=== PATIENT | female | born 1980 | race Caucasian/White ===

== ENCOUNTER 2016-07-20 | Inpatient (IN) ==
[2016-07-20] MEDS ORDERED: Ondansetron 4 MG/2 ML VIAL IVP PRN (00:26)
[2016-07-20] MEDS ORDERED: Famotidine 20 MG/2 ML VIAL IVP PRN (00:26)
[2016-07-20] MEDS ORDERED: Naloxone 0.4 MG/ML INJ IVP PRN (00:26)
--- NOTE | 2016-07-20 00:37 | OB/GYN History & Physical ---
Date of Encounter: 07/20/16 Time of Encounter: 00:32 Assessment and Plan (1) 38 weeks gestation of Current visit: Yes Status: Acute admit to labor and delivery (2) Spontaneous rupture of amniotic membranes Current visit: Yes Status: Acute Speculum + pooling and fern test Large amount of clear fluid noted. (3) Hepatitis C virus Current visit: Yes Status: Acute Qualifiers: Viral hepatitis chronicity: chronic Hepatic coma status: without hepatic coma Qualified Code(s): B18.2 - Chronic viral hepatitis C History of Present Illness Chief complaint: SROM HPI: Ms. Whalen is a 35 year old female at 38w2d presents to labor and delivery with complaints of spontaneous rupture of membranes. Patient reports her water broke at 2300 on 07/19/16. Patient denies any bleeding or color to amniotic fluid. Patient reports + FM and irregular contractions. Patient desires permanent sterilization after delivery. Consent is singed and on the chart. Patient's blood type is O+, Rubella: Immune, Hep B: nonreactive, Hep C: Positive GBS: Negative. Patient has late but adequate care. Past Med Surg Social Fam HX - Past Medical History Source: patient Medical history: hepatitis (Hep C +) Psychiatric history: no psych history - Past Surgical History Surgical History: other (D+C) - Social History Smoking Status: Current every day smoker Smokeless Tobacco Status: No Alcohol use: none Drug use: none Current living situation: Home - Independent Activity Level: Independent ambulation Recent Out of Country Travel Within the Last 8 Weeks: No Exposure or Possible Exposure to Illness During Travel: No Obstetrical History - Pregnancies : 8 Para: 3 Term: 3 : 0 Ab's: 4 Livin Medications and Allergies Ferrous Sulfate 325 mg PO BIDWM 03/03/15 [History] Penicillin VK 500 mg PO QID #40 tablet 03/03/15 [Rx] TraMADol [Ultram] 50 mg PO Q6HR PRN #12 tablet 03/03/15 [Rx] Allergies No Known Allergies Allergy (Verified 03/03/15 17:42) Review of System OB - Constitutional Constitutional ROS IM: no chills, no fever(s), no headache(s) - Cardiovascular Cardiovascular: no chest pain, no edema, no palpitations, no syncope - Respiratory Respiratory: no cough - Gastrointestinal Gastrointestinal: no abdominal pain, no constipation, no diarrhea, no heartburn , no nausea, no vomiting - Genitourinary Genitourinary: vaginal discharge, no abnormal vaginal bleeding, no dysuria, no flank pain, no genital lesions, no urinary frequency, no urinary hesitancy, no urinary urgency, no vaginal odor, no vaginal pruritis Exam - Constitutional Constitutional: well developed, well nourished, no acute distress, average body habitus - HEENT HEENT: Normocephaly, Mucus Membranes Moist - Neck Neck exam: full ROM, supple - Lungs Respiratory exam: CTAB - Cardiovascular Cardiovascular exam: RRR, +S1, +S2 - Abdomen Abdomen: Present: bowel sounds normal, gravid, non tender - Extremities Extremities exam: full ROM, normal capillary refill, normal inspection Deep Tendon Reflex Grade: 2+ Normal - Cervix Dilation: 4 Effacement: 90 Station: -1 - Uterus Uterus exam: Present: normal size, normal contour - Anus/Rectum Anus/Rectum: Present: normal perianal skin - Comments Comments: Speculum exam: +[place], + Pooling. FHR 135 bpm moderate variability +15x15 accels no decels noted CAt 1 tracing. Results All other labs normal. - VTE Reasons for not Prescribing Prophylaxis: Treatment not Indicated - Low risk for VTE
[2016-07-20] MEDS ORDERED: miSOPROStol 100 MCG TABLET PO STA (01:33)
[2016-07-20 01:57] LABS: Basophils # 0.1 K/mcL (0.0-0.2); Basophils % 0.3 %; Eosinophils # 0.3 K/mcL (0.0-0.6); Eosinophils % 1.5 %; Hematocrit 39.5 % (35.3-44.9); Hemoglobin 13.3 g/dL (11.5-15.4); Immature Granulocytes % 1.5 % (0-4); Lymphocytes # 3.5 K/mcL (0.6-4.6); Lymphocytes % 20.5 %; Mean Corpuscular HGB Conc 33.7 g/dL (31.6-35.5); Mean Corpuscular Hemoglobin 32.4 pg (28.0-33.3); Mean Corpuscular Volume 96.1 fL (83.0-100.0); Mean Platelet Volume 9.4 fL (9.4-12.4); Monocytes # 1.5 K/mcL (0.0-1.3); Monocytes % 8.9 %; Neutrophils # 11.6 K/mcL (1.6-8.9); Platelet Count 401 K/mcL (140-400); Red Blood Count 4.11 M/mcL (3.82-4.97); Red Cell Distribution Width 13.7 % (11.5-14.5); Segmented Neutrophils % 67.3 %
[2016-07-20] MEDS ORDERED: Mag Hydrox/Al Hydrox/Simeth 30 ML UDC PO PRN (04:16)
--- NOTE | 2016-07-20 06:12 | OB Labor Progress Note ---
Date of Encounter: 07/20/16 Time of Encounter: 06:10 Labor Progress Note - Subjective Subjective: Patient resting in bed on left side. Patient reports contractions are stronger and pain is worse. Discussed POC with patient. Patient denies any questions or concerns. - Cervix Cervix: 5/90/-1 - Heart Tones Heart Tones: 135 bpm moderate variability +15x15 accels no decels noted. - [place]: 1-4 min apart - Interventions Interventions: SVE, IUPC placed without difficulty. Patient tolerated well. - Plan Plan: Continue labor management. If contractions are not adequate for labor will start Pitocin if needed.
[2016-07-20] MEDS ORDERED: Oxytocin 20 units/ LR 1000 mL 20 UNIT/1,000 ML BAG IVC SCH (06:15)
[2016-07-20] MEDS: *HR* Nalbuphine 20 MG/ML AMPUL IVP PRN ×2 (06:23→09:56)
[2016-07-20] MEDS: Ringers Solution, Lactated 1,000 ML IVC SCH ×2 (06:24→11:17)
[2016-07-20] MEDS ORDERED: Nicotine 21 MG PATCH.TD24 TD SCH (09:00)
--- NOTE | 2016-07-20 11:03 | Anesthesia Evaluation PreOp ---
Date of Encounter: 07/20/16 Time of Encounter: 07:24 - Past History Planned Operation: vaginal del, Induction Cardiac History: Denies any Significant Hx Pulmonary History: Denies Any Significant HX PLANT MAINTENANCE TECHNICIAN History: Denies Any Significant HX Other Medical History: Hepatic (Hep C, previous drug abuse/Methadone use) Anesthesia History: No Prior Anesthetic Complications (no Family Hx of problems) , Past Anesthesia : Yes (term) Alcohol Use: none Drug use: none Medications and Allergies Ranitidine HCl [Zantac] 150 mg PO HS 07/20/16 [History] Allergies No Known Allergies Allergy (Verified 07/20/16 02:32) Anesthesia Results - Labs 07/20/16 01:25 Anesthesia Exam - HEENT Pupil (Motor): Pupils equal Mallampati: II Teeth: Normal Oral Opening: Greater than 3 - PLANT MAINTENANCE TECHNICIAN LOC: Oriented PLANT MAINTENANCE TECHNICIAN Motor: Normal RUE, Normal LUE, Normal RLE, Normal LLE, Normal Face PLANT MAINTENANCE TECHNICIAN Sensory: Normal: RUE, LUE, RLE, LLE, Face - Cardiac Rhythm: Regular Murmur: None - Pulmonary Breath Sounds: bilateral Clear Respiratory Effort: Symmetrical Anesthesia Assess/Plan ASA Score: 2 Modified Michael Scale for Level of Consciousness: Cooperative, oriented, and tranquil Anesthetic Plan: General, Regional Monitoring Plan: Standard Monitors
[2016-07-20] MEDS ORDERED: Epidural Premix (fent/bupiv) 110 ML EP ONE (11:13)
[2016-07-20] MEDS ORDERED: EPHEDrine 50 MG/ML VIAL ONE (12:04)
--- NOTE | 2016-07-20 12:16 | Anesthesia Procedures ---
Date of Encounter: 07/20/16 Time of Encounter: 11:38 Procedures: Anesthesia - Epidural/Spinal Patient ID/Chart reviewed: Yes Patient examined: Yes OB Eval: Gestational age: term OB Eval: : 3 OB Eval: Hx Para: 2 OB Eval: Contractions: Non-stressed pattern Consent Obtained: Yes Site Prep: Aseptic Technique, Sterile prep and drape, 0.5% Chlorhexidine/Alcohol Patient position: upright Local Anesthetic: Lidocaine 1% Amount of Local Anesthetic used: 2 Touhy Needle Gauge: 18 Touhy Needle Depth (cm): 7 Catheter Depth at Skin (cm): 11 Test Dose Result: Negative Loading Dose: Other: 12ml from solution Loading Dose Administered: Thru Catheter Infusion Med: 0.125% Bupivacaine w/ 2 mcg/ml Fentanyl Infusion Rate (mls/hr): [address]: Tegaderm, Tape Interspace Used: L3-L4 Loss of Resistance (MARIA DOLORES): Yes (saline) Blood: No CSF: No Paresthesia: No Vitals + FHT's: vss though out, FHR stable per rn's
--- NOTE | 2016-07-20 14:29 | OB/GYN Procedure Note ---
Delivery - Delivery Date: 07/20/16 Provider: Gisselle Wetzel Intrapartum events: none Delivery induction: none Delivery augmentation: pitocin Delivery monitor: external FHT, external uterine, internal uterine Anesthesia: epidural Estimated Blood Loss: 100 - (s) Infant A Delivery Date: 07/20/16 Infant Delivery Time: 13:58 Presentation: vertex Position: POLA Route of delivery: Gender: Female Viability: Viable Pounds: 7 Ounces: 9 Weight Gram: 3.435 kg at 1 minute: 7 at 5 mins: 9 Shoulder Dystocia: not encountered Specimens collected: cord blood Placenta: spontaneous Cord: nuchal cord (x1), 3 umbilical vessels, other (True Knot) - Repair Episiotomy: none Laceration Description: None - Complications Delivery complications: none Delivery comments: Called to patient's room. Patient reports pressure and she needs to push. Patient was complete. Placed in stirrups and prepped for delivery. Patient began to push with contractions. Spontaneous delivery of female infant POLA. Nuchal cord x1 reduced. Infant was placed on maternal abdomen. Cord was clamped and cut after pulsation ceased. Cord blood was collected. A true knot was noted in umbilical cord. Perineum intact. placed skin to skin. Pericare provided. Both mother and baby are stable in LDR. - Disposition Mom disposition: stable in LDR [place] disposition: stable in LDR
[2016-07-20] MEDS ORDERED: Lanolin 7 G OINT...G. TP PRN (17:01)
[2016-07-20] MEDS ORDERED: Oxytocin 20 units/ LR 1000 mL 20 UNIT/1,000 ML BAG IV SCH (17:01)
[2016-07-20] MEDS ORDERED: Acetaminophen 325 MG TABLET PO PRN (17:01)
[2016-07-20] MEDS ORDERED: Oxytocin 20 units/ LR 1000 mL 20 UNIT/1,000 ML BAG IVC ONE (17:01)
[2016-07-20] MEDS: Ibuprofen 600 MG TABLET PO PRN ×2 (17:17→23:23)
[2016-07-21] MEDS ORDERED: Ringers Solution, Lactated 1,000 ML ONE ×2 (05:22→10:09)
[2016-07-21] MEDS: Ibuprofen 600 MG TABLET PO PRN ×3 (05:31→20:57)
[2016-07-21] MEDS: Ringers Solution, Lactated 1,000 ML IVC SCH (05:33)
--- NOTE | 2016-07-21 07:25 | Anesthesia Evaluation PreOp ---
Date of Encounter: 07/21/16 Time of Encounter: 07:22 - Past History Planned Operation: BTL Cardiac History: Denies any Significant Hx Pulmonary History: Denies Any Significant HX STUDENT SERVICES COORDINATOR History: Denies Any Significant HX Other Medical History: Hepatic (HEP C, previous drug abuse/methadone use) Anesthesia History: No Prior Anesthetic Complications, Past Anesthesia Alcohol Use: none Drug use: none Medications and Allergies Ranitidine HCl [Zantac] 150 mg PO HS 07/20/16 [History] Allergies No Known Allergies Allergy (Verified 07/20/16 02:32) Anesthesia Results - Labs 07/20/16 01:25 Anesthesia Exam - HEENT Pupil (Motor): Pupils equal Mallampati: II Teeth: Normal Oral Opening: Greater than 3 - STUDENT SERVICES COORDINATOR LOC: Oriented STUDENT SERVICES COORDINATOR Motor: Normal RUE, Normal LUE, Normal RLE, Normal LLE, Normal Face STUDENT SERVICES COORDINATOR Sensory: Normal: RUE, LUE, RLE, LLE, Face - Cardiac Rhythm: Regular Murmur: None - Pulmonary Breath Sounds: bilateral Clear Respiratory Effort: Symmetrical Anesthesia Assess/Plan ASA Score: 2 Modified Michael Scale for Level of Consciousness: Cooperative, oriented, and tranquil Anesthetic Plan: General (patient request GA,) Monitoring Plan: Standard Monitors
[2016-07-21] MEDS ORDERED: *HR* Promethazine 25 MG/ML VIAL IVP PRN (07:26)
[2016-07-21] MEDS ORDERED: *HR* FentaNYL (PF) 250 MCG/5 ML VIAL ONE (07:33)
[2016-07-21] MEDS ORDERED: Lidocaine -MPF 2% 5 ML VIAL INFILT ONE (07:33)
[2016-07-21] MEDS ORDERED: *HR* Propofol 200 MG/20 ML VIAL IVP ONE (07:34)
[2016-07-21] MEDS ORDERED: *HR* Midazolam HCl 2 MG/2 ML VIAL ONE (07:36)
[2016-07-21] MEDS ORDERED: Lidocaine 1% 20 ML MDV ONE (08:31)
[2016-07-21] MEDS ORDERED: Dexamethasone 4 MG/ML VIAL ONE (09:11)
[2016-07-21] MEDS ORDERED: Ondansetron 4 MG/2 ML VIAL ONE (09:11)
[2016-07-21] MEDS ORDERED: *HR* HYDROcodone/Acet 5/325 mg TABLET PO ONE (09:37)
[2016-07-21] MEDS ORDERED: *HR* OxyCODONE/APAP 5/325 TABLET PO ONE ×2 (09:37→23:58)
--- NOTE | 2016-07-21 09:41 | OB/GYN Procedure Note ---
OB-MANAGER HOSPICE: Procedure - Diagnosis Date of procedure: 07/21/16 Pre-op diagnosis: Desires sterilization Post-op diagnosis: same - Procedure Procedure: Bilateral partial salpingectomy Surgeon: Brennen Martin Anesthesia provider: Cortez Cheng Anesthesia Type: General Estimated blood loss (cc): 10 Fluids: crystalloid Procedure Complications: None Specimens collected: Bilateral partial fallopian tubes Disposition: PACU Findings: Normal fallopian tubes Narrative: Patient was taken to the operating room. After satisfactory anesthesia was achieved, she was placed in supine position prepped and draped in usual manner. After appropriate timeout, the abdomen was entered through a standard transverse infraumbilical incision. The fallopian tube followed out to the fimbrial ends. Distal ends of fallopian tubes were bilaterally resected and sent to pathology for analysis. Pedicles were ligated using 2-0 chromic. After assurance of hemostasis, the abdomen was closed in standard fashion using 2-0 Vicryl on the fascia and 3-0 Monocryl on the skin. Sterile dressing was applied. Patient did well was taken to recovery room in satisfactory condition. Count was incorrect in that there was an extra instrument.
[2016-07-21] MEDS: *HR* HYDROmorphone (PF) 1 MG/ML SYRINGE IVP PRN ×4 (09:52→10:10)
--- NOTE | 2016-07-21 13:00 | Anesthesia Evaluation Post Op ---
Date of Encounter: 07/21/16 Time of Encounter: 12:58 - Vital Signs Vital Signs: Vital Signs Temperature 98.1 F 07/20/16 16:40 Pulse Rate 100 07/20/16 16:40 Respiratory Rate 16 07/20/16 16:40 Blood Pressure 100/69 07/20/16 16:40 O2 Sat by Pulse Oximetry 96 07/20/16 16:40 Temperature 97.5 F L 07/21/16 11:45 Pulse Rate 88 07/21/16 11:45 Respiratory Rate 16 07/21/16 11:45 Blood Pressure 110/69 07/21/16 11:45 O2 Sat by Pulse Oximetry 96 07/21/16 10:45 - Lungs Lungs: Clear Ascult./Percussion - Airway Airway: Non-obstructed - Cardiovascular Regular Rate - Mental Status Mental Status: Alert & Oriented, Answers Appropriately - Pain Pain Scale: 7 (tolerable) Pain Scale used: Numeric (1 - 10) - Nausea Vomiting Nausea Vomiting: Not Present - Hydration Hydration: NPO, Has not voided - Discharge PostOp Status: Transfer Patient to floor
[2016-07-22] MEDS: Ibuprofen 600 MG TABLET PO PRN ×3 (02:49→21:10)
[2016-07-22] MEDS: Nicotine 21 MG PATCH.TD24 TD SCH (03:12)
[2016-07-22] MEDS: Prenatal Vit/FA 1 EACH TABLET PO SCH (07:47)
--- NOTE | 2016-07-22 08:08 | OB/GYN Progress Note ---
Date of Encounter: 07/22/16 Time of Encounter: 08:06 - Assessment and Plan (1) 38 weeks gestation of Current Visit: Yes Status: Acute admit to labor and delivery (2) Spontaneous rupture of amniotic membranes Current Visit: Yes Status: Acute Speculum + pooling and fern test Large amount of clear fluid noted. (3) Hepatitis C virus Current Visit: Yes Status: Acute Qualifiers: Viral hepatitis chronicity: chronic Hepatic coma status: without hepatic coma Qualified Code(s): B18.2 - Chronic viral hepatitis C (4) Tubal ligation status Current Visit: Yes Status: Acute Pain control (5) Breast feeding status of mother Current Visit: Yes Status: Acute support prn (6) Vaginal delivery Current Visit: Yes Status: Acute Continue routine care discharge home tomorrow Subjective - Subjective Principal diagnosis: Status postop day 1 tubal ligation Interval history: Patient is day 2 vaginal delivery but postop day 1 tubal ligation. Patient is still having a lot of pain due to tubal. Patient has not had an order for pain medicine other than one time order. Dressing to be removed today. Will discharge home tomorrow. Patient reports: appetite normal, voiding normally, pain well controlled, ambulating normally : doing well, nursing well Objective - Latest Vital Signs Latest vital signs: Vital Signs Temp Pulse Resp BP Pulse Ox 07/22/16 03:00 97.9 F 88 24 104/68 96 07/21/16 19:57 98.2 F 83 12 115/69 96 07/21/16 13:00 98.0 F 98 16 109/76 07/21/16 11:45 97.5 F L 88 16 110/69 07/21/16 10:45 98.0 F 91 16 111/81 96 07/21/16 10:34 97.8 F 88 16 102/74 95 07/21/16 10:19 97.8 F 86 16 99/61 95 07/21/16 10:04 97.7 F 106 16 125/86 96 07/21/16 09:49 97.8 F 100 16 120/91 95 07/21/16 09:39 97.6 F 88 16 119/94 95 07/21/16 08:16 97.8 F 93 16 114/85 Intake and Output 07/21/16 07/22/16 07/22/16 23:59 07:59 15:59 Intake Total 600 / 600 Output Total 200 / 200 900 / 900 Balance -200 / -200 -300 / -300 Intake: Oral 600 / 600 Output: Urine 200 / 200 900 / 900 Other: Stool Characteristics Normal for Patient Weight 66.4 kg Patient Weight 07/22/16 23:59 Weight 66.4 kg - Exam Lungs: bilateral: normal Chest: Normal S1, Normal S2 Extremities: Present: normal Abdomen: Present: normal appearance, soft Uterus: Present: normal, firm Uterus Position: 1 Finger Below Umbilicus, Midline Comments: +BM
[2016-07-22] MEDS: *HR* OxyCODONE/APAP 5/325 TABLET PO PRN ×2 (08:45→21:10)
[2016-07-23] MEDS: *HR* OxyCODONE/APAP 5/325 TABLET PO PRN ×2 (01:55→07:33)
[2016-07-23] MEDS: Ibuprofen 600 MG TABLET PO PRN ×2 (03:05→08:36)
[2016-07-23] MEDS: Nicotine 21 MG PATCH.TD24 TD SCH (04:06)
--- NOTE | 2016-07-23 08:04 | Discharge Summary ---
Date of Encounter: 07/23/16 Time of Encounter: 08:02 - Discharge Diagnosis (1) 38 weeks gestation of Priority: Secondary Status: Acute (2) Spontaneous rupture of amniotic membranes Priority: Secondary Status: Acute (3) Hepatitis C virus Priority: Secondary Status: Acute Qualifiers: Viral hepatitis chronicity: chronic Hepatic coma status: without hepatic coma Qualified Code(s): B18.2 - Chronic viral hepatitis C (4) Tubal ligation status Priority: Secondary Status: Acute Comments: routine postop care (5) Breast feeding status of mother Priority: Secondary Status: Acute Comments: support prn (6) Vaginal delivery Priority: Primary Status: Acute Comments: Continue routine care discharge home today follow up in 4-6 weeks with CNM - Discharge Medications Prescriptions: Ibuprofen [Motrin] 600 mg PO Q6HR PRN #60 tablet PRN Reason: Cramping Breast Pump [BREAST PUMP] 1 each .ROUTE AD #1 each Home Medications: Breast Pump [BREAST PUMP] 1 each .ROUTE AD #1 each 07/23/16 [Rx] Ibuprofen [Motrin] 600 mg PO Q6HR PRN #60 tablet 07/23/16 [Rx] Vit/FA 1 each PO DAILY tablet 07/23/16 [Rx] Allergies/Adverse Reactions: Allergies No Known Allergies Allergy (Verified 07/20/16 02:32) Data Procedures and tests throughout hospitalization: Laboratory Tests 07/20/16 01:25 WBC 17.2 H RBC 4.11 Hgb 13.3 Hct 39.5 MCV 96.1 MCH 32.4 MCHC 33.7 RDW 13.7 Plt Count 401 H MPV 9.4 Immature Gran % 1.5 Seg Neutrophils % 67.3 Lymphocytes % 20.5 Monocytes % 8.9 Eosinophils % 1.5 Basophils % 0.3 Neutrophils # 11.6 H Lymphocytes # 3.5 Monocytes # 1.5 H Eosinophils # 0.3 Basophils # 0.1 Date of admission: 07/20/16 00:00 Primary care physician: PCP NO Consults: 07/20/16 17:01 Consult to Stock Parts Inspector [CONS] Routine Comment: Vaginal delivery, consult needed Consult to Software Quality Tester [CONS] Routine Reason for SW Consult: 3 day hold HX of opiate use Discharging clinician: Gisselle Wetzel Anticipated date of discharge: 07/23/16 - Patient Status Disposition: Home, Self-Care Condition: Good Functional capacity at discharge: independent ambulation - Discharge Instructions Follow Up With: NO,PCP [Primary Care Provider] - Gisselle Wetzel CNM [Advanced Practice Nurse] - - Diet and Activity Activity: increase activity as tolerated Diet: regular diet Hospital Course Reason for admission: active labor Delivery: Episiotomy: none Other procedures: none, tubal ligation complications: none Discharge diagnosis: IUP at term delivered baby: female (breast feeding) Time Attestation: Total time spent providing and/or coordinating discharge services: Time Spent: Less than 30 minutes Exam - Constitutional Vitals: Temp Pulse Resp BP Pulse Ox 98.7 F 88 12 117/88 97 07/22/16 20:48 07/22/16 20:48 07/22/16 20:48 07/22/16 20:48 07/22/16 20:48 General appearance IM: A&O X 3, pleasant, answers questions appropriately - Respiratory Respiratory exam: Present: CTAB - Cardiovascular Cardiovascular exam IM: Present: RRR, +S1, +S2 - GI/Abdominal GI/Abdominal exam IM: normal bowel sounds Incision: dry, intact, other (steri strips) - Uterine Tone: Firm Uterus Position: 2 Fingers Below Umbilicus, Midline - Extremities Exam Extremities exam IM: Present: full ROM, normal capillary refill, normal inspection - Neurological Exam Neurological exam: alert, oriented X3, reflexes normal
[2016-07-23] MEDS: Prenatal Vit/FA 1 EACH TABLET PO SCH (08:31)
[2016-07-23 08:55] VITALS: BP 119/77
== END 2016-07-23 10:15 | disposition home or self-care (01) | DRG 541 ==
LOC: 1NENULAB → 1NENUOBS 16:39
PROVIDERS: ADMIT Advanced Practice Midwife; ATTEND Advanced Practice Midwife